=== PATIENT | female | born 1960 | race Caucasian/White ===

== ENCOUNTER 2025-01-04 22:43 | Emergency (ER) | payer OTHER ==
[~2025-01-04] VITALS: Ht 160 cm; Wt 49.9 kg
[2025-01-04 23:04] LABS: BASOPHILS ABSOLUTE AUTO 0.08 K/mm3 (0.00-0.23); BASOPHILS PERCENT AUTO 1 % (0-2); EOSINOPHILS ABSOLUTE AUTO 0.42 K/mm3 (0.00-0.68); EOSINOPHILS PERCENT AUTO 4 % (0-6); Hematocrit 45.3 % (33.0-51.0); Hemoglobin 13.7 g/dL (11.5-16.0); IMMATURE GRAN ABSOLUTE AUTO 0.02 K/mm3 (0.00-0.10); IMMATURE GRAN PERCENT AUTO 0 % (0-1); LYMPHOCYTES ABSOLUTE AUTO 3.03 K/mm3 (0.84-5.20); LYMPHOCYTES PERCENT AUTO 30 % (21-46); MONOCYTES ABSOLUTE AUTO 0.76 K/mm3 (0.16-1.47); MONOCYTES PERCENT AUTO 7 % (4-13); Mean Corpuscular HGB 27.4 pg (26.0-34.0); Mean Corpuscular HGB Conc 30.2 g/dL (31.5-36.5); Mean Corpuscular Volume 91 fL (80-100); Mean Platelet Volume 10.5 fL (9.1-12.4); NEUTROPHILS ABSOLUTE AUTO 5.91 K/mm3 (1.96-9.15); NEUTROPHILS PERCENT AUTO 58 % (41-73); Platelet Count 233 K/mm3 (150-400); RDW Coefficient Variation 13.1 % (11.7-14.2); RDW Standard Deviation 43.1 fL (35.1-46.3); White Blood Cell Count 10.22 K/mm3 (4.00-11.30)
[2025-01-04 23:36] LABS: Albumin, Blood 3.4 g/dL (3.4-5.0); Albumin/Globulin Ratio 0.9 (0.8-1.8); Bilirubin, Total 0.6 mg/dL (0.1-1.0); Bun/Creatinine Ratio 23.3 (12.0-20.0); Calcium, Blood 9.1 mg/dL (8.5-10.1); Creatinine, Blood 0.65 mg/dL (0.40-1.00); Globulin, Blood 3.8 g/dL (2.2-4.0); Potassium, Blood 4.6 mmol/L (3.5-5.5); Total Protein, Blood 7.2 g/dL (6.4-8.2)
[2025-01-04 23:46] LABS: Influenza A, PCR NEGATIVE (NEGATIVE); Influenza B, PCR NEGATIVE (NEGATIVE); Resp Syncytial Virus, PCR NEGATIVE (NEGATIVE); SARS-Cov-2 (COVID-19) PCR, MMC NEGATIVE (NEGATIVE)
[2025-01-04] MEDS ORDERED: PRED20 PO (23:51)
== END 2025-01-05 00:28 | disposition home or self-care (01) ==
LOC: ER 22:43
PROVIDERS: Student in an Organized Health Care Education/Training Program
DX: J44.1 Chronic obstructive pulmonary disease with (acute) exacerbation (principal); I10 Essential (primary) hypertension; Z99.81 Dependence on supplemental oxygen; Z91.048 Other nonmedicinal substance allergy status
CPT/HCPCS: 0241U; 71045; 80053; 83880; 84484; 85025; 93005; 93010; 99285-25

== ENCOUNTER 2025-01-15 21:59 | Inpatient (IN) | payer MEDICARE, OTHER ==
[~2025-01-15] VITALS: Ht 157.5 cm; Wt 48.6 kg
[~2025-01-15 21:59] MED LIST: PRED20 PO
[2025-01-15] MEDS ORDERED: Ketorolac Tromethamine 15mg Vial IV ONE (22:25)
[2025-01-15 22:37] LABS: BASOPHILS ABSOLUTE AUTO 0.05 K/mm3 (0.00-0.23); BASOPHILS PERCENT AUTO 0 % (0-2); EOSINOPHILS ABSOLUTE AUTO 0.03 K/mm3 (0.00-0.68); EOSINOPHILS PERCENT AUTO 0 % (0-6); Hematocrit 42.7 % (33.0-51.0); Hemoglobin 13.3 g/dL (11.5-16.0); IMMATURE GRAN ABSOLUTE AUTO 0.08 K/mm3 (0.00-0.10); IMMATURE GRAN PERCENT AUTO 0 % (0-1); LYMPHOCYTES ABSOLUTE AUTO 1.83 K/mm3 (0.84-5.20); LYMPHOCYTES PERCENT AUTO 9 % (21-46); MONOCYTES ABSOLUTE AUTO 1.81 K/mm3 (0.16-1.47); MONOCYTES PERCENT AUTO 8 % (4-13); Mean Corpuscular HGB 28.4 pg (26.0-34.0); Mean Corpuscular HGB Conc 31.1 g/dL (31.5-36.5); Mean Corpuscular Volume 91 fL (80-100); Mean Platelet Volume 10.7 fL (9.1-12.4); NEUTROPHILS ABSOLUTE AUTO 17.81 K/mm3 (1.96-9.15); NEUTROPHILS PERCENT AUTO 82 % (41-73); Platelet Count 190 K/mm3 (150-400); RDW Coefficient Variation 13.2 % (11.7-14.2); RDW Standard Deviation 43.7 fL (35.1-46.3); Red Blood Cell Count 4.69 M/mm3 (3.80-5.20); White Blood Cell Count 21.61 K/mm3 (4.00-11.30)
[2025-01-15 22:50] LABS: Magnesium, Blood 1.8 mg/dL (1.6-2.4)
[2025-01-15 22:51] LABS: Albumin/Globulin Ratio 0.7 (0.8-1.8); Bilirubin, Total 1.3 mg/dL (0.1-1.0); Bun/Creatinine Ratio 39.6 (12.0-20.0); Calcium, Blood 8.9 mg/dL (8.5-10.1); Creatinine, Blood 0.33 mg/dL (0.40-1.00); Globulin, Blood 4.3 g/dL (2.2-4.0); Potassium, Blood 4.1 mmol/L (3.5-5.5); Total Protein, Blood 7.3 g/dL (6.4-8.2)
[2025-01-16] LABS: Influenza A, PCR NEGATIVE (NEGATIVE); Influenza B, PCR NEGATIVE (NEGATIVE); Resp Syncytial Virus, PCR NEGATIVE (NEGATIVE); SARS-Cov-2 (COVID-19) PCR, MMC NEGATIVE (NEGATIVE)
[2025-01-16] MEDS ORDERED: Acetaminophen 500 MG Tab PO ONE (00:10)
[2025-01-16] MEDS ORDERED: Azithromycin 250 MG Tab PO ONE (00:10)
[2025-01-16 03:28] VITALS: BP 129/67
[2025-01-16] MEDS ORDERED: PredniSONE 20 MG Tab PO SCH (03:37)
[2025-01-16] MEDS ORDERED: Acetaminophen 325 MG TABLET PO PRN (03:40)
[2025-01-16] MEDS ORDERED: FLU VACC TS2024-25(6MOS UP)/PF 45 MCG/0.5 ML SYRINGE IM ONE (03:45)
[2025-01-16] MEDS ORDERED: GuaiFENesin 600 MG TabCR PO SCH (04:00)
--- NOTE | 2025-01-16 05:10 | NUR ---
SHIFT SUMM: PT IS A 64 YO FULL CODE ADMITTED FOR COPD EXACERBATION AND WAS A TRANSFER FROM THE ED THIS SHIFT AND ARRIVED AT 0324. PT IS CURRENTLY ON 4L OF NC AND IS 2L AT BASELINE. PT ALSO REPORTS USING A WALKER AT BASELINE. PT HAS HAD SOME INCONT THIS SHIFT AND WEARS PULL UPS. PT IS A&OX4 AND REPORTS NO PAIN. PT HAS AN UNBLANCHABLE PRESSURE WOUND STARTING ON COCCYX AND SACRAL MEPILEX HAS BEEN PLACED. I ALSO PLACED MEPILEX ON BOTH ELBOWS FOR PREVENTION BECAUSE THEY WERE RED AND BONY PROMINENTS. PT IS CURRENTLY TAKING PREDNISONE. PT HAS A PATENT 20GA LFA IV. PT'S RESP PANEL WAS NEGATIVE. PT HAS CALL LIGHT IN REACH AND BED ALARM SET FOR SAFETY.
[2025-01-16] MEDS ORDERED: Ipratropium/Albuterol SulF 2.5-0.5MG/3 ML Amp INH SCH ×2 (06:00→07:25)
[2025-01-16 06:15] LABS: BASOPHILS ABSOLUTE AUTO 0.02 K/mm3 (0.00-0.23); BASOPHILS PERCENT AUTO 0 % (0-2); EOSINOPHILS PERCENT AUTO 0 % (0-6); Hematocrit 46.3 % (33.0-51.0); Hemoglobin 14.1 g/dL (11.5-16.0); IMMATURE GRAN PERCENT AUTO 1 % (0-1); LYMPHOCYTES ABSOLUTE AUTO 0.87 K/mm3 (0.84-5.20); LYMPHOCYTES PERCENT AUTO 5 % (21-46); MONOCYTES ABSOLUTE AUTO 0.15 K/mm3 (0.16-1.47); MONOCYTES PERCENT AUTO 1 % (4-13); Mean Corpuscular HGB 27.9 pg (26.0-34.0); Mean Corpuscular HGB Conc 30.5 g/dL (31.5-36.5); Mean Corpuscular Volume 92 fL (80-100); Mean Platelet Volume 11.5 fL (9.1-12.4); NEUTROPHILS ABSOLUTE AUTO 17.72 K/mm3 (1.96-9.15); NEUTROPHILS PERCENT AUTO 94 % (41-73); Platelet Count 161 K/mm3 (150-400); RDW Coefficient Variation 13.2 % (11.7-14.2); RDW Standard Deviation 44.7 fL (35.1-46.3); Red Blood Cell Count 5.06 M/mm3 (3.80-5.20); White Blood Cell Count 18.86 K/mm3 (4.00-11.30)
[2025-01-16 06:36] LABS: Albumin, Blood 3.1 g/dL (3.4-5.0); Albumin/Globulin Ratio 0.7 (0.8-1.8); Bun/Creatinine Ratio 27.8 (12.0-20.0); Calcium, Blood 9.6 mg/dL (8.5-10.1); Creatinine, Blood 0.76 mg/dL (0.40-1.00); Globulin, Blood 4.5 g/dL (2.2-4.0); Magnesium, Blood 2.2 mg/dL (1.6-2.4); Potassium, Blood 3.6 mmol/L (3.5-5.5); Total Protein, Blood 7.6 g/dL (6.4-8.2)
[2025-01-16 07:42] VITALS: BP 129/74
[2025-01-16] MEDS ORDERED: Enoxaparin 40 MG/0.4 ML SYR SC SCH (09:00)
[2025-01-16] MEDS ORDERED: Lactobacil 2-S.Thermo-Bifido 1 1 Cap PO SCH (09:00)
[2025-01-16] MEDS ORDERED: Docusate Sodium 100 MG Cap PO SCH (09:00)
[2025-01-16 10:14] LABS: Base Excess Venous 4.4 mmol/L; Bicarbonate Venous 27.4 mmol/L (24.0-30.0); PCO2 Venous 47.1 mmHg (38-42)
[2025-01-16] MEDS ORDERED: CefTRIAXone Sodium 1,000 MG in NS 100 ML IV ONE (11:25)
[2025-01-16] MEDS ORDERED: NS 250 ML IV PRN (12:05)
[2025-01-16 15:02] VITALS: BP 112/60
--- NOTE | 2025-01-16 19:18 | NUR ---
SHIFT SUMMARY PATIENT TITRATED FROM 4 LITERS TO 2 LITERS NC, WHICH IS BASELINE. ABLE TO AMBULATE WITH SBA TO BATHROOM, SHAKY AND FEELS SOB POST. EATING AND DRINKING WELL, ADEQUATE URINE OUTPUT. STAGE I TO COCCYX, MEPILEX REPLACED THIS SHIFT. PROPHYLACTIC MEPILEX PLACED TO BILATERAL ELBOWS. A/O X 4. ABLE TO MAKE NEEDS KNOWN. CALL LIGHT IN REACH.
[2025-01-16 19:28] VITALS: BP 119/59
[2025-01-16] MEDS ORDERED: Azithromycin 500 MG in NS 250 ML IV SCH (21:00)
[2025-01-17 03:28] VITALS: BP 104/64
--- NOTE | 2025-01-17 03:30 | NUR ---
SHIFT SUMMARY PATIENT HAS BEEN SLEEPING INTERMITTANTLY TONIGHT BETWEEN NURSING CARE. IV ZITHROMAX INFUSED WITHOUT COMPLICATIONS. SHE IS ORIENTED X4 AND HAS HER CALL LIGHT WITHIN REACH. SAFETY PRECAUTIONS ARE BEING MAINTAINED..
[2025-01-17 06:07] LABS: BASOPHILS ABSOLUTE AUTO 0.05 K/mm3 (0.00-0.23); BASOPHILS PERCENT AUTO 0 % (0-2); EOSINOPHILS ABSOLUTE AUTO 0.02 K/mm3 (0.00-0.68); EOSINOPHILS PERCENT AUTO 0 % (0-6); Hemoglobin 12.3 g/dL (11.5-16.0); IMMATURE GRAN ABSOLUTE AUTO 0.22 K/mm3 (0.00-0.10); IMMATURE GRAN PERCENT AUTO 1 % (0-1); LYMPHOCYTES ABSOLUTE AUTO 1.42 K/mm3 (0.84-5.20); LYMPHOCYTES PERCENT AUTO 5 % (21-46); MONOCYTES PERCENT AUTO 4 % (4-13); Mean Corpuscular HGB 27.8 pg (26.0-34.0); Mean Corpuscular HGB Conc 31.5 g/dL (31.5-36.5); Mean Corpuscular Volume 88 fL (80-100); Mean Platelet Volume 11.2 fL (9.1-12.4); NEUTROPHILS ABSOLUTE AUTO 28.51 K/mm3 (1.96-9.15); NEUTROPHILS PERCENT AUTO 91 % (41-73); Platelet Count 164 K/mm3 (150-400); RDW Coefficient Variation 13.2 % (11.7-14.2); RDW Standard Deviation 43.3 fL (35.1-46.3); Red Blood Cell Count 4.42 M/mm3 (3.80-5.20); White Blood Cell Count 31.42 K/mm3 (4.00-11.30)
[2025-01-17 06:34] LABS: Albumin, Blood 2.8 g/dL (3.4-5.0); Albumin/Globulin Ratio 0.7 (0.8-1.8); Bilirubin, Total 0.2 mg/dL (0.1-1.0); Bun/Creatinine Ratio 45.8 (12.0-20.0); Calcium, Blood 8.9 mg/dL (8.5-10.1); Creatinine, Blood 0.63 mg/dL (0.40-1.00); Globulin, Blood 3.9 g/dL (2.2-4.0); Potassium, Blood 4.5 mmol/L (3.5-5.5); Total Protein, Blood 6.7 g/dL (6.4-8.2)
[2025-01-17 07:09] VITALS: BP 113/69
[2025-01-17] MEDS ORDERED: Dextran/Hypromellose/Glycerin 15 DROP/ML BTL BOTHEYES PRN (11:50)
[2025-01-17] MEDS ORDERED: CefTRIAXone Sodium 1,000 MG in NS 100 ML IV SCH (12:00)
[2025-01-17 15:28] LABS: Adenovirus Not Detected (NOT DETECT); Bordetella pertussis Not Detected (NOT DETECT); Chlamydophila pneumoniae Not Detected (NOT DETECT); Coronavirus 229E Not Detected (NOT DETECT); Coronavirus HKU1 Not Detected (NOT DETECT); Coronavirus NL63 Not Detected (NOT DETECT); Coronavirus OC43 Not Detected (NOT DETECT); Human Metapneumovirus Not Detected (NOT DETECT); Human Rhinovirus/Enterovirus Not Detected (NOT DETECT); Influenza A/2009-H1 Not Detected (NOT DETECT); Influenza A/H1 Not Detected (NOT DETECT); Influenza A/H3 Not Detected (NOT DETECT); Influenza B Not Detected (NOT DETECT); Mycoplasma pneumoniae Not Detected (NOT DETECT); Parainfluenza Virus 1 Not Detected (NOT DETECT); Parainfluenza Virus 2 Not Detected (NOT DETECT); Parainfluenza Virus 3 Not Detected (NOT DETECT); Parainfluenza Virus 4 Not Detected (NOT DETECT); Respiratory Syncytial Virus Not Detected (NOT DETECT); SARS-Cov-2 (COVID-19), BioFire Not Detected (NOT DETECT)
[2025-01-17 15:39] VITALS: BP 126/85
[2025-01-17] MEDS ORDERED: Lactated Ringer's 1,000 ML IV SCH (16:00)
[2025-01-17] MEDS ORDERED: Vancomycin HCL 1,000 MG in NS 250 ML IV SCH (17:00)
[2025-01-17] MEDS ORDERED: DiphenhydrAMINE HCl 50 MG/ML 1ML Vial IV ONE (17:15)
[2025-01-17] MEDS ORDERED: Ketotifen Fumarate Opth Soln BOTHEYES SCH (17:19)
--- NOTE | 2025-01-17 18:47 | NUR ---
SHIFT SUMMARY PATIENT C/O DRY AND ITCHY EYES THROUGH SHIFT WAS EVENTUALLY GIVEN AN ANTIHISTAMINE EYE DROP PRESCRIPTION. ELEVATED WBC AT 31, PHYSICIAN ASSESSMENT R/O MENINGITIS. MRSA CULTURE NARES, SPUTUM CULTURE COLLECTED. RESPIRATORY PCR WAS NEGATIVE. STARTED ON VANCO IV WITH IMMEDIATE RED-MAN REACTION. FLUSHING. TACHYCARDIA, SPO2 DROPPED TO 88%, ITCHING AND BURNING IN ARMS AND LEGS. GIVEN IV PUSH BENADRYL, THE MAIN IV LINE WAS CHANGED. RT GAVE BREATHING TREATMENT AND PATIENT DID STABILIZE. VANCO ADDED TO ALLERGY LIST. PROVIDER WAS NOTIFIED. PROVIDER ADVISED PATIENT ABOUT THE REPORTED AAA, SHOULD BE FOLLOWED UP OUT OF HOSPITAL DUE TO COST.
[2025-01-17 19:10] LABS: Acinetobacter baumannii DNA Not Detected copy/mL (NOT DETECT); Enterobacter cloacae DNA Not Detected copy/mL (NOT DETECT); Escherichia coli DNA Not Detected copy/mL (NOT DETECT); Haemophilus influenzae DNA Not Detected copy/mL (NOT DETECT); Klebsiella aerogenes DNA Not Detected copy/mL (NOT DETECT); Klebsiella oxytoca DNA Not Detected copy/mL (NOT DETECT); Klebsiella pneumoniae DNA Not Detected copy/mL (NOT DETECT); Moraxella catarrhalis DNA Detected Bin 10^4 copy/mL (NOT DETECT); Proteus sp DNA Not Detected copy/mL (NOT DETECT); Pseudomonas aeruginosa DNA Not Detected copy/mL (NOT DETECT); Serratia marcescens DNA Not Detected copy/mL (NOT DETECT); Staphylococcus aureus DNA Not Detected copy/mL (NOT DETECT); Streptococcus agalactiae DNA Not Detected copy/mL (NOT DETECT); Streptococcus pneumoniae DNA Detected Bin 10^6 copy/mL (NOT DETECT); Streptococcus pyogenes DNA Not Detected copy/mL (NOT DETECT)
[2025-01-17 19:11] LABS: Adenovirus DNA Not Detected (NOT DETECT); Chlamydia pneumonia Not Detected (NOT DETECT); Human Coronavirus RNA Not Detected (NOT DETECT); Human Metapneumovirus RNA Not Detected (NOT DETECT); Influenza virus A RNA Not Detected (NOT DETECT); Influenza virus B RNA Not Detected (NOT DETECT); Legionella pneumophila Not Detected (NOT DETECT); Mycoplasma pneumoniae Not Detected (NOT DETECT); Parainfluenza virus RNA Not Detected (NOT DETECT); Respiratory syncytial Vir RNA Not Detected (NOT DETECT); Rhinovirus+Enterovirus RNA Not Detected (NOT DETECT)
[2025-01-17 20:01] VITALS: BP 131/72
[2025-01-17] MEDS ORDERED: GuaiFENesin 600 MG TabCR PO SCH (21:00)
[2025-01-18 02:07] VITALS: BP 139/89
--- NOTE | 2025-01-18 03:09 | NUR ---
SHIFT SUMMARY PATIENT APPEARS TO BE RESTING COMFORTABLY AT THIS TIME. IV ZITHROMAX INFUSED WITHOUT COMPLICATIONS ON THIS SHIFT. PATIENT HAS NOT HAD ANY COMPLAINTS. SHE DENIES PAIN. PATIENT ORIENTED X4. SHE HAS HER CALL LIGHT WITHIN REACH. VSS. SAFETY PRECAUTIONS ARE BEING MAINTAINED.
[2025-01-18] MEDS ORDERED: Vancomycin HCL 750 MG in NS 250 ML IV SCH (05:00)
[2025-01-18 06:35] LABS: BASOPHILS ABSOLUTE AUTO 0.03 K/mm3 (0.00-0.23); BASOPHILS PERCENT AUTO 0 % (0-2); EOSINOPHILS PERCENT AUTO 1 % (0-6); Hematocrit 39.9 % (33.0-51.0); Hemoglobin 12.3 g/dL (11.5-16.0); IMMATURE GRAN ABSOLUTE AUTO 0.14 K/mm3 (0.00-0.10); IMMATURE GRAN PERCENT AUTO 1 % (0-1); LYMPHOCYTES ABSOLUTE AUTO 2.43 K/mm3 (0.84-5.20); LYMPHOCYTES PERCENT AUTO 12 % (21-46); MONOCYTES ABSOLUTE AUTO 0.96 K/mm3 (0.16-1.47); MONOCYTES PERCENT AUTO 5 % (4-13); Mean Corpuscular HGB 28.2 pg (26.0-34.0); Mean Corpuscular HGB Conc 30.8 g/dL (31.5-36.5); Mean Corpuscular Volume 92 fL (80-100); Mean Platelet Volume 11.7 fL (9.1-12.4); NEUTROPHILS ABSOLUTE AUTO 17.51 K/mm3 (1.96-9.15); NEUTROPHILS PERCENT AUTO 83 % (41-73); Platelet Count 196 K/mm3 (150-400); RDW Coefficient Variation 13.4 % (11.7-14.2); RDW Standard Deviation 45.2 fL (35.1-46.3); Red Blood Cell Count 4.36 M/mm3 (3.80-5.20); White Blood Cell Count 21.17 K/mm3 (4.00-11.30)
[2025-01-18 07:01] LABS: Bun/Creatinine Ratio 30.8 (12.0-20.0); Calcium, Blood 9.3 mg/dL (8.5-10.1); Creatinine, Blood 0.72 mg/dL (0.40-1.00); Potassium, Blood 4.3 mmol/L (3.5-5.5)
[2025-01-18 07:27] VITALS: BP 124/74
[2025-01-18] MEDS ORDERED: Albuterol 2.5 MG/3 ML VIAL INH PRN (08:15)
--- NOTE | 2025-01-18 08:24 | NUR ---
ASSUMPTION OF CARE: ASSUMED CARE OF PATIENT. AWAKE DURING SHIFT CHANGE REPORT. LYING IN BED. BREATHING EVEN AND UNLABORED ON 2LPM/NC. REPORTS FEELING LIKE SHE HAS A COLD SORE COMING ON THE RIGHT SIDE OF HER FACE; NO VISIBLE LESIONS BUT "FEELS IT COMING ON". CALL TO DR. OTT REQUESTING ORDER FOR INTERVENTION PRN. BED IN LOWEST POSITION. CALL LIGHT WITHIN REACH. NO ACUTE NEEDS.
[2025-01-18] MEDS ORDERED: Acyclovir 400 MG Tab PO SCH (09:00)
[2025-01-18 15:43] VITALS: BP 120/74
--- NOTE | 2025-01-18 15:49 | NUR ---
SR. PAYROLL MANAGER DOCUMENTATION REVIEW: THIS RN HAS PERSONALLY REVIEWED DOCUMENTATION BY STUDENT NURSE. ALL CONTROLLED SUBSTANCES GIVEN BY AND APPROPRIATE IV PUSHES DIRECTLY OBSERVED BY THIS RN.
--- NOTE | 2025-01-18 18:48 | NUR ---
END OF SHIFT SUMMARY: A&Ox4. PLEASANT AND COOPERATIVE WITH CARE. CALLS APPROPRIATELY AND IS ABLE TO ADVOCATE NEEDS EFFECTIVELY. CONTINENT OF BOWEL AND BLADDER. SBA c FWW TO BATHROOM. IV REPLACED TODAY. STARTED ACYCLOVIR FOR C/O FEELING LIKE COLD SORE COMING ON. MEDS WHOLE c FLUIDS. BLOOD CULTURES PENDING. BED IN LOWEST POSITION, CALL LIGHT WITHIN REACH, ALL NEEDS MET. REPORT TO ONCOMING NURSE.
[2025-01-18 19:07] VITALS: BP 166/75
[2025-01-18] MEDS ORDERED: Apixaban 5 MG Tab PO SCH (21:00)
[2025-01-19 03:26] VITALS: BP 148/92
--- NOTE | 2025-01-19 03:34 | NUR ---
SHIFT SUMMARY PATIENT HAS APPEARED TO SLEEP COMFORTABLY MOST OF THE NIGHT. SHE ACCIDENTALLY PULLED OUT HER IV DURING THIS SHIFT. IT WAS RESTARTED. PATIENT DENIES PAIN. SHE STATES SHE IS COUGHING LESS TONIGHT. PATIENT IS ORIENTED X4. SHE HAS HER CALL LIGHT WITHIN REACH AND HAS AGREED TO CALL WITH ANY REQUESTS OR NEEDS. SAFETY PRECAUTIONS ARE BEING MAINTAINED.
[2025-01-19 04:59] LABS: BASOPHILS ABSOLUTE AUTO 0.03 K/mm3 (0.00-0.23); BASOPHILS PERCENT AUTO 0 % (0-2); EOSINOPHILS ABSOLUTE AUTO 0.22 K/mm3 (0.00-0.68); EOSINOPHILS PERCENT AUTO 2 % (0-6); Hematocrit 42.9 % (33.0-51.0); Hemoglobin 12.9 g/dL (11.5-16.0); IMMATURE GRAN PERCENT AUTO 1 % (0-1); LYMPHOCYTES ABSOLUTE AUTO 2.18 K/mm3 (0.84-5.20); LYMPHOCYTES PERCENT AUTO 15 % (21-46); MONOCYTES ABSOLUTE AUTO 0.82 K/mm3 (0.16-1.47); MONOCYTES PERCENT AUTO 6 % (4-13); Mean Corpuscular HGB 27.2 pg (26.0-34.0); Mean Corpuscular HGB Conc 30.1 g/dL (31.5-36.5); Mean Corpuscular Volume 90 fL (80-100); Mean Platelet Volume 10.8 fL (9.1-12.4); NEUTROPHILS ABSOLUTE AUTO 10.95 K/mm3 (1.96-9.15); NEUTROPHILS PERCENT AUTO 77 % (41-73); Platelet Count 233 K/mm3 (150-400); RDW Coefficient Variation 13.3 % (11.7-14.2); RDW Standard Deviation 44.5 fL (35.1-46.3); Red Blood Cell Count 4.75 M/mm3 (3.80-5.20)
[2025-01-19 07:33] VITALS: BP 133/86
[2025-01-19] MEDS ORDERED: Metoprolol Succinate 50 MG TABCR PO SCH (09:00)
[2025-01-19] MEDS ORDERED: ACYC400 PO (12:44)
[2025-01-19] MEDS ORDERED: ARTIFICIAL TEAR15 M7 BOTHEYES (12:45)
[2025-01-19] MEDS ORDERED: ZADITOR5 M1 BOTHEYES (12:46)
[2025-01-19] MEDS ORDERED: VISBIOME 112.51 EACH PO (12:46)
[2025-01-19] MEDS ORDERED: GUAI600T33 PO (12:46)
[2025-01-19] MEDS ORDERED: SPIRIVA RESPIMAT4 G3 INH (12:47)
[2025-01-19] MEDS ORDERED: CEFP200 PO (12:47)
--- NOTE | 2025-01-19 17:01 | NUR ---
SHIFT SUMMARY/DISCHARGE PATIENT EDUCATED ON COPD AND MEDICATIONS. WAS GIVEN A LIST OF PRIMARY CARE PROVIDERS TO ESTABLISH A NEW PCP CLOSER TO HER. DISCHARGE INSTRUCTIONS REVIEWED WITH PATIENT, IV REMOVED; PATIENT TRANSPORTED BY WHEELCHAIR BY THE SCIENTIFIC DIVER, ROOM CHECK COMPLETE PRIOR TO DISCHARGE.
== END 2025-01-19 16:46 | disposition home health service (06) | DRG 871 ==
LOC: ER 21:59 → ERHOLD 22:00 → MEDS 22:00
PROVIDERS: Family Medicine; Student in an Organized Health Care Education/Training Program; ADMIT Student in an Organized Health Care Education/Training Program
DX: A40.3 Sepsis due to Streptococcus pneumoniae (principal); J13 Pneumonia due to Streptococcus pneumoniae; J96.21 Acute and chronic respiratory failure with hypoxia; R65.20 Severe sepsis without septic shock; J44.0 Chronic obstructive pulmonary disease with (acute) lower respiratory infection; J44.1 Chronic obstructive pulmonary disease with (acute) exacerbation; B00.89 Other herpesviral infection; Z99.81 Dependence on supplemental oxygen; Z88.1 Allergy status to other antibiotic agents; Z79.52 Long term (current) use of systemic steroids
CPT/HCPCS: 0202U; 0241U; 0528U; 36415; 71045; 80048; 80053; 82803; 83605; 83735; 83880; 84145; 85025; 87040; 87070; 87205; 93005; 93010; 94640; 94664; 94760; 96372; 96374; 96375; 99285-25; A9270; G0378; J0456; J0696; J1200; J1650; J1885; J3370; J7050; J7120; J7512

== ENCOUNTER 2025-05-02 10:02 | Emergency (ER) | payer MEDICARE, OTHER ==
[~2025-05-02] VITALS: Ht 167.6 cm; Wt 54.4 kg
[~2025-05-02 10:02] MED LIST changes: +ACYC400 PO; +ARTIFICIAL TEAR15 M7 BOTHEYES; +CEFP200 PO; +GUAI600T33 PO; +SPIRIVA RESPIMAT4 G3 INH; +VISBIOME 112.51 EACH PO; +ZADITOR5 M1 BOTHEYES
[2025-05-02] MEDS ORDERED: HYDROcodone 5-APAP 325 TAB PO ONE (10:15)
[2025-05-02 10:36] LABS: BASOPHILS ABSOLUTE AUTO 0.06 K/mm3 (0.00-0.23); BASOPHILS PERCENT AUTO 1 % (0-2); EOSINOPHILS ABSOLUTE AUTO 0.42 K/mm3 (0.00-0.68); EOSINOPHILS PERCENT AUTO 4 % (0-6); Hematocrit 43.4 % (33.0-51.0); Hemoglobin 13.8 g/dL (11.5-16.0); IMMATURE GRAN ABSOLUTE AUTO 0.03 K/mm3 (0.00-0.10); IMMATURE GRAN PERCENT AUTO 0 % (0-1); LYMPHOCYTES ABSOLUTE AUTO 1.74 K/mm3 (0.84-5.20); LYMPHOCYTES PERCENT AUTO 18 % (21-46); MONOCYTES ABSOLUTE AUTO 0.65 K/mm3 (0.16-1.47); MONOCYTES PERCENT AUTO 7 % (4-13); Mean Corpuscular HGB Conc 31.8 g/dL (31.5-36.5); Mean Corpuscular Volume 89 fL (80-100); NEUTROPHILS ABSOLUTE AUTO 6.66 K/mm3 (1.96-9.15); NEUTROPHILS PERCENT AUTO 70 % (41-73); NRBC ABSOLUTE 0.00 K/mm3 (0.00-0.02); NRBC Auto 0.0 /100 WBC (0.0-0.2); Platelet Count 205 K/mm3 (150-400); RDW Coefficient Variation 13.0 % (11.7-14.2); RDW Standard Deviation 42.5 fL (35.1-46.3)
[2025-05-02 10:55] LABS: Alanine Aminotransfer (ALT/SGP 13.0 U/L (12-78); Albumin, Blood 3.4 g/dL (3.4-5.0); Albumin/Globulin Ratio 0.8 (0.8-1.8); Anion Gap 3.0 mmol/L (3-11); Aspartate Aminotrans (AST/SGOT 15.0 U/L (12-37); Bilirubin, Total 0.5 mg/dL (0.1-1.0); Blood Urea Nitrogen 13.0 mg/dL (8-24); CO2, Blood 28.0 mmol/L (21-32); Calcium, Blood 9.2 mg/dL (8.5-10.1); Chloride, Blood 103.0 mmol/L (98-108); Creatinine, Blood 0.64 mg/dL (0.40-1.00); Globulin, Blood 4.2 g/dL (2.2-4.0); Glucose, Blood 131.0 mg/dL (70-99); Potassium, Blood 4.0 mmol/L (3.5-5.5); Sodium, Blood 130.0 mmol/L (136-145); Total Protein, Blood 7.6 g/dL (6.4-8.2)
[2025-05-02] MEDS ORDERED: Prednisone20 MG PO (12:45)
[2025-05-02] MEDS ORDERED: Roxicodone5 MG PO (12:45)
[2025-05-02] MEDS ORDERED: ALBU90OI INH (12:45)
== END 2025-05-02 15:12 | disposition home or self-care (01) ==
LOC: ER 10:02
PROVIDERS: Emergency Medicine
DX: J44.1 Chronic obstructive pulmonary disease with (acute) exacerbation (principal); R07.81 Pleurodynia; Z88.1 Allergy status to other antibiotic agents; Z79.899 Other long term (current) drug therapy
CPT/HCPCS: 36415; 71045; 80053; 84484; 85025; A9270

== ENCOUNTER 2025-08-08 12:11 | Emergency (ER) | payer MEDICARE, OTHER ==
[~2025-08-08] VITALS: Ht 167.6 cm; Wt 54.9 kg
[~2025-08-08 12:11] MED LIST changes: +ALBU90OI INH; +Prednisone20 MG PO; +Roxicodone5 MG PO
[2025-08-08 12:50] LABS: BASOPHILS ABSOLUTE AUTO 0.10 K/mm3 (0.00-0.23); BASOPHILS PERCENT AUTO 1 % (0-2); EOSINOPHILS ABSOLUTE AUTO 0.50 K/mm3 (0.00-0.68); EOSINOPHILS PERCENT AUTO 5 % (0-6); Hematocrit 42.1 % (33.0-51.0); Hemoglobin 13.0 g/dL (11.5-16.0); IMMATURE GRAN ABSOLUTE AUTO 0.05 K/mm3 (0.00-0.10); IMMATURE GRAN PERCENT AUTO 1 % (0-1); LYMPHOCYTES ABSOLUTE AUTO 3.18 K/mm3 (0.84-5.20); LYMPHOCYTES PERCENT AUTO 29 % (21-46); MONOCYTES ABSOLUTE AUTO 0.94 K/mm3 (0.16-1.47); MONOCYTES PERCENT AUTO 9 % (4-13); Mean Corpuscular HGB Conc 30.9 g/dL (31.5-36.5); Mean Corpuscular Volume 90 fL (80-100); NEUTROPHILS ABSOLUTE AUTO 6.03 K/mm3 (1.96-9.15); NEUTROPHILS PERCENT AUTO 56 % (41-73); NRBC ABSOLUTE 0.00 K/mm3 (0.00-0.02); NRBC Auto 0.0 /100 WBC (0.0-0.2); Platelet Count 214 K/mm3 (150-400); RDW Coefficient Variation 13.8 % (11.7-14.2); RDW Standard Deviation 45.7 fL (35.1-46.3)
[2025-08-08] MEDS ORDERED: ACET500 PO (13:11)
[2025-08-08] MEDS ORDERED: Norco 5-325 Ta1 EACH PO (13:12)
[2025-08-08] MEDS ORDERED: ASPIR 8181 M1 PO (13:12)
[2025-08-08] MEDS ORDERED: ALBU2.5V5 INH (13:13)
[2025-08-08] MEDS ORDERED: BREZTRI AEROS10.7 GM INH (13:13)
[2025-08-08] MEDS ORDERED: Voltaren100 GM TOP (13:16)
[2025-08-08] MEDS ORDERED: ATOR40TA PO (13:17)
[2025-08-08] MEDS ORDERED: SPIR25 PO (13:17)
[2025-08-08 13:41] LABS: Alanine Aminotransfer (ALT/SGP 29.0 U/L (12-78); Albumin, Blood 3.5 g/dL (3.4-5.0); Albumin/Globulin Ratio 0.9 (0.8-1.8); Anion Gap 9.0 mmol/L (3-11); Aspartate Aminotrans (AST/SGOT 24.0 U/L (12-37); Bilirubin, Total 0.8 mg/dL (0.1-1.0); Blood Urea Nitrogen 21.0 mg/dL (8-24); CO2, Blood 27.0 mmol/L (21-32); Calcium, Blood 9.1 mg/dL (8.5-10.1); Chloride, Blood 103.0 mmol/L (98-108); Creatinine, Blood 0.7 mg/dL (0.40-1.00); Globulin, Blood 3.9 g/dL (2.2-4.0); Glucose, Blood 92.0 mg/dL (70-99); Potassium, Blood 4.6 mmol/L (3.5-5.5); Sodium, Blood 134.0 mmol/L (136-145); Total Protein, Blood 7.4 g/dL (6.4-8.2)
[2025-08-08 13:58] LABS: Influenza A, PCR NEGATIVE (NEGATIVE); Influenza B, PCR NEGATIVE (NEGATIVE); Resp Syncytial Virus, PCR NEGATIVE (NEGATIVE); SARS-Cov-2 (COVID-19) PCR, MMC NEGATIVE (NEGATIVE)
[2025-08-08] MEDS ORDERED: OXYC5 PO (16:32)
== END 2025-08-08 17:01 | disposition home or self-care (01) ==
LOC: ER 12:11
PROVIDERS: Emergency Medicine
DX: R10.10 Upper abdominal pain, unspecified (principal); R07.9 Chest pain, unspecified; K76.89 Other specified diseases of liver; I71.43 Infrarenal abdominal aortic aneurysm, without rupture; I74.09 Other arterial embolism and thrombosis of abdominal aorta; Z99.81 Dependence on supplemental oxygen; Z79.82 Long term (current) use of aspirin; Z79.51 Long term (current) use of inhaled steroids; Z79.899 Other long term (current) drug therapy; Z59.89 Other problems related to housing and economic circumstances
CPT/HCPCS: 71046; 76705; 80053; 83690; 83880; 84484; 85025; 87637; 93005; 93010; 99285-25

== ENCOUNTER 2025-08-10 20:51 | Emergency (ER) | payer MEDICARE, OTHER ==
[~2025-08-10] VITALS: Ht 167.6 cm; Wt 54.9 kg
[~2025-08-10 20:51] MED LIST changes: +ACET500 PO; +ALBU2.5V5 INH; +ASPIR 8181 M1 PO; +ATOR40TA PO; +BREZTRI AEROS10.7 GM INH; +Norco 5-325 Ta1 EACH PO; +OXYC5 PO; +SPIR25 PO; +Voltaren100 GM TOP
[2025-08-10] MEDS ORDERED: Lidocaine 2% Viscous Soln 15 ML UDC PO ONE (21:20)
[2025-08-10 21:26] LABS: BASOPHILS ABSOLUTE AUTO 0.12 K/mm3 (0.00-0.23); BASOPHILS PERCENT AUTO 1 % (0-2); EOSINOPHILS ABSOLUTE AUTO 0.70 K/mm3 (0.00-0.68); EOSINOPHILS PERCENT AUTO 5 % (0-6); Hematocrit 40.9 % (33.0-51.0); Hemoglobin 12.8 g/dL (11.5-16.0); IMMATURE GRAN ABSOLUTE AUTO 0.05 K/mm3 (0.00-0.10); IMMATURE GRAN PERCENT AUTO 0 % (0-1); LYMPHOCYTES ABSOLUTE AUTO 3.25 K/mm3 (0.84-5.20); LYMPHOCYTES PERCENT AUTO 24 % (21-46); MONOCYTES ABSOLUTE AUTO 0.94 K/mm3 (0.16-1.47); MONOCYTES PERCENT AUTO 7 % (4-13); Mean Corpuscular HGB Conc 31.3 g/dL (31.5-36.5); Mean Corpuscular Volume 91 fL (80-100); NEUTROPHILS ABSOLUTE AUTO 8.65 K/mm3 (1.96-9.15); NEUTROPHILS PERCENT AUTO 63 % (41-73); NRBC ABSOLUTE 0.00 K/mm3 (0.00-0.02); NRBC Auto 0.0 /100 WBC (0.0-0.2); Platelet Count 222 K/mm3 (150-400); RDW Coefficient Variation 14.1 % (11.7-14.2); RDW Standard Deviation 47.2 fL (35.1-46.3)
[2025-08-10 21:49] LABS: Alanine Aminotransfer (ALT/SGP 30.0 U/L (12-78); Albumin, Blood 3.6 g/dL (3.4-5.0); Albumin/Globulin Ratio 1.0 (0.8-1.8); Anion Gap 9.0 mmol/L (3-11); Aspartate Aminotrans (AST/SGOT 16.0 U/L (12-37); Bilirubin, Total 0.3 mg/dL (0.1-1.0); Blood Urea Nitrogen 25.0 mg/dL (8-24); CO2, Blood 28.0 mmol/L (21-32); Calcium, Blood 9.0 mg/dL (8.5-10.1); Chloride, Blood 104.0 mmol/L (98-108); Creatinine, Blood 0.69 mg/dL (0.40-1.00); Globulin, Blood 3.6 g/dL (2.2-4.0); Glucose, Blood 97.0 mg/dL (70-99); Potassium, Blood 4.5 mmol/L (3.5-5.5); Sodium, Blood 136.0 mmol/L (136-145); Total Protein, Blood 7.2 g/dL (6.4-8.2)
[2025-08-11] MEDS ORDERED: Magnesium Hydroxide Conc 10 ML UDC PO ONE (00:05)
[2025-08-11] MEDS ORDERED: Miralax17 GM PO (00:09)
[2025-08-11] MEDS ORDERED: Fleet Enema132 ML PR (00:09)
== END 2025-08-11 03:04 | disposition home or self-care (01) ==
LOC: ER 20:51
PROVIDERS: Emergency Medicine
DX: R10.13 Epigastric pain (principal); K59.00 Constipation, unspecified; J44.9 Chronic obstructive pulmonary disease, unspecified; Z99.81 Dependence on supplemental oxygen; Z88.1 Allergy status to other antibiotic agents; Z79.82 Long term (current) use of aspirin; Z79.899 Other long term (current) drug therapy
CPT/HCPCS: 74177; 80053; 83690; 84484; 85025; 93005; 93010; 99284-25; A9270; Q9967

== ENCOUNTER 2025-08-19 10:07 | Emergency (ER) | payer MEDICARE, OTHER ==
[~2025-08-19] VITALS: Ht 167.6 cm; Wt 54.4 kg
[~2025-08-19 10:07] MED LIST changes: +Fleet Enema132 ML PR; +Miralax17 GM PO
[2025-08-19] MEDS ORDERED: MAGCIT300 PO (11:46)
[2025-08-19] MEDS ORDERED: BISA5EC PO (11:46)
== END 2025-08-19 11:55 | disposition home or self-care (01) ==
LOC: ER 10:07
DX: K59.00 Constipation, unspecified (principal); R10.10 Upper abdominal pain, unspecified; G89.29 Other chronic pain; I50.9 Heart failure, unspecified; J44.9 Chronic obstructive pulmonary disease, unspecified; F17.200 Nicotine dependence, unspecified, uncomplicated; Z79.2 Long term (current) use of antibiotics; Z59.89 Other problems related to housing and economic circumstances
CPT/HCPCS: 74018; 99284-25

== ENCOUNTER 2025-09-08 12:25 | Emergency (ER) | payer MEDICARE, OTHER ==
[~2025-09-08] VITALS: Ht 170.2 cm; Wt 58.1 kg
[~2025-09-08 12:25] MED LIST changes: +BISA5EC PO; +MAGCIT300 PO
[2025-09-08 13:08] LABS: BASOPHILS ABSOLUTE AUTO 0.05 K/mm3 (0.00-0.23); BASOPHILS PERCENT AUTO 1 % (0-2); EOSINOPHILS ABSOLUTE AUTO 0.75 K/mm3 (0.00-0.68); EOSINOPHILS PERCENT AUTO 9 % (0-6); Hematocrit 41.6 % (33.0-51.0); Hemoglobin 13.3 g/dL (11.5-16.0); IMMATURE GRAN ABSOLUTE AUTO 0.03 K/mm3 (0.00-0.10); IMMATURE GRAN PERCENT AUTO 0 % (0-1); LYMPHOCYTES ABSOLUTE AUTO 1.38 K/mm3 (0.84-5.20); LYMPHOCYTES PERCENT AUTO 16 % (21-46); MONOCYTES ABSOLUTE AUTO 0.58 K/mm3 (0.16-1.47); MONOCYTES PERCENT AUTO 7 % (4-13); Mean Corpuscular HGB Conc 32.0 g/dL (31.5-36.5); Mean Corpuscular Volume 90 fL (80-100); NEUTROPHILS ABSOLUTE AUTO 5.83 K/mm3 (1.96-9.15); NEUTROPHILS PERCENT AUTO 68 % (41-73); NRBC ABSOLUTE 0.00 K/mm3 (0.00-0.02); NRBC Auto 0.0 /100 WBC (0.0-0.2); Platelet Count 228 K/mm3 (150-400); RDW Coefficient Variation 14.6 % (11.7-14.2); RDW Standard Deviation 48.1 fL (35.1-46.3)
[2025-09-08 13:41] LABS: Alanine Aminotransfer (ALT/SGP 25.0 U/L (12-78); Albumin, Blood 3.7 g/dL (3.4-5.0); Albumin/Globulin Ratio 0.9 (0.8-1.8); Anion Gap 9.0 mmol/L (3-11); Aspartate Aminotrans (AST/SGOT 30.0 U/L (12-37); Bilirubin, Total 0.7 mg/dL (0.1-1.0); Blood Urea Nitrogen 16.0 mg/dL (8-24); CO2, Blood 24.0 mmol/L (21-32); Calcium, Blood 9.5 mg/dL (8.5-10.1); Chloride, Blood 105.0 mmol/L (98-108); Creatinine, Blood 0.68 mg/dL (0.40-1.00); Globulin, Blood 3.9 g/dL (2.2-4.0); Glucose, Blood 109.0 mg/dL (70-99); Potassium, Blood 4.9 mmol/L (3.5-5.5); Sodium, Blood 133.0 mmol/L (136-145); Total Protein, Blood 7.6 g/dL (6.4-8.2)
[2025-09-08 15:00] LABS: Source, Urine Clean Catch
[2025-09-08 15:16] LABS: Bilirubin, Urine Neg (Neg); Color, Urine Yellow (P-Yellow); Glucose Qualitative, Urine Neg (Neg); Ketones, Urine Neg (Neg); Leukocyte Esterase, Urine Neg (Neg); Protein, Urine 1+ (Neg); Specific Gravity, Urine 1.020 (1.003-1.022); Urobilinogen, Urine NORM (Normal)
[2025-09-08] MEDS ORDERED: Lidocaine 2% Viscous Soln 15 ML UDC PO ONE (18:05)
[2025-09-08] MEDS ORDERED: Pantoprazole Sodium 40 MG Injection IV ONE (18:05)
[2025-09-08] MEDS ORDERED: OMEP20ER PO (18:29)
== END 2025-09-08 18:57 | disposition home or self-care (01) ==
LOC: ER 12:25
PROVIDERS: Physician Assistant
DX: R10.13 Epigastric pain (principal); Z88.1 Allergy status to other antibiotic agents; J44.9 Chronic obstructive pulmonary disease, unspecified; M19.90 Unspecified osteoarthritis, unspecified site
CPT/HCPCS: 76705; 80053; 83690; 85025; 93005; 93010; 96374; 99284-25; A9270; J2470